=== PATIENT | female | born 2000 | race Hispanic/Latino ===

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

== ENCOUNTER 2021-10-01 16:02 | Emergency (ER) | payer MEDICAID ==
[~2021-10-01] VITALS: Ht 152.4 cm; Wt 77.1 kg
[2021-10-01] MEDS ORDERED: ACET-3194 PO (17:27)
[2021-10-01] MEDS ORDERED: AZIT250T9 PO (17:27)
[2021-10-01] MEDS ORDERED: ALBU6.7H9 IH (17:27)
[2021-10-01] MEDS ORDERED: IBUP-2070 PO (17:27)
[2021-10-01] MEDS ORDERED: PSEU120T62 PO (17:27)
[2021-10-01] MEDS ORDERED: ACETAMINOPHEN 500 MG TABLET PO ONE (17:30)
[2021-10-01] MEDS ORDERED: IBUPROFEN 600 MG TABLET PO ONE (17:30)
[2021-10-01 18:32] VITALS: BP 126/72
== END 2021-10-01 18:28 | disposition home or self-care (01) ==
LOC: EDH 16:02
DX: U07.1 COVID-19 (principal)
CPT/HCPCS: 87635; 87804 ×2; 99283; C9803